=== PATIENT | male | born 1980 | race Caucasian/White ===

== ENCOUNTER 2021-01-14 10:27 | Emergency (ER) | payer BC ==
[~2021-01-14] VITALS: Ht 177.8 cm; Wt 104.3 kg
[2021-01-14 11:47] VITALS: BP 125/81
== END 2021-01-14 11:47 | disposition home or self-care (01) ==
LOC: M.ERS 10:27
DX: S02.5XXA Fracture of tooth (traumatic), initial encounter for closed fracture (principal); S01.511A Laceration without foreign body of lip, initial encounter; Z90.89 Acquired absence of other organs; W18.39XA Other fall on same level, initial encounter; Y93.22 Activity, ice hockey; Y92.89 Other specified places as the place of occurrence of the external cause; Y99.8 Other external cause status